=== PATIENT | female | born 1975 | race Caucasian/White ===

== ENCOUNTER 2017-03-03 15:10 | Emergency (ER) | payer MEDICAID, OTHER ==
[~2017-03-03] VITALS: Ht 147.3 cm; Wt 60.0 kg
[~2017-03-03 15:10] MED LIST: MULT1TAB84 PO
[2017-03-03 15:12] VITALS: BP 126/79; PULSE 85; RESP 15; TEMP 98.6; O2SAT 99
[2017-03-03] MEDS ORDERED: CYCLOBENZAPRINE HCL 10 MG TAB PO ONE (19:15)
[2017-03-03] MEDS ORDERED: IBUPROFEN 600 MG TAB PO ONE (19:15)
[2017-03-03] MEDS ORDERED: ACETAMINOPHEN/HYDROcodone 325 MG/5 MG TAB PO ONE (19:15)
[2017-03-03] MEDS ORDERED: DICL75TA PO (19:16)
[2017-03-03] MEDS ORDERED: HYDR-3516 PO (19:16)
[2017-03-03] MEDS ORDERED: CYCL10TA PO (19:16)
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
== END 2017-03-03 19:40 | disposition home or self-care (01) ==
LOC: NEPK 15:10
DX: S16.1XXA Strain of muscle, fascia and tendon at neck level, initial encounter (principal); V89.2XXA Person injured in unspecified motor-vehicle accident, traffic, initial encounter
CPT/HCPCS: 99284

== ENCOUNTER 2017-04-02 03:36 | Emergency (ER) | payer SELFPAY ==
[~2017-04-02 03:36] MED LIST changes: +CYCL10TA PO; +DICL75TA PO; +HYDR-3516 PO
[2017-04-02 03:43] VITALS: BP 111/69; PULSE 118; RESP 22; TEMP 100.2; O2SAT 100
--- NOTE | 2017-04-02 03:57 | PD ---
HPI Chief Complaint: Fever Time Seen by Provider: 03:53 Travel History International Travel<30 days: No Contact w/Intl Traveler<30days: No Traveled to known affect area: No History of Present Illness HPI 41-year-old female presents to the emergency department for complaint of headache fever or neck pain migraine myalgias arthralgias since . Patient states she has been taking ibuprofen. Last ibuprofen was 8 hours prior to arrival to the emergency department. Patient is also had nausea without vomiting. No abdominal pain or diarrhea. Patient presently demonstrating. Patient denies . Patient has no chronic medical problems. Patient takes no medications on a routine basis. Patient states that she did not have the flu vaccine for the season. Patient rates her overall pain 7/10 intensity. PFSH Past Medical History Narrative Medical Kidney stones ureteral stent no tobacco use nursing notes reviewed Anxiety: Yes Diminished Hearing: No Headaches: Yes Kidney Stones: Yes (HX OF STENT) Medical other: Yes (kidney stones ) Immunizations Current: Yes Migraines: Yes Tetanus Vaccination: < 5 Years Influenza Vaccination: No ?: Not LMP: 03/29/17 : 4 Para: 3 Tubal Ligation: Yes Past Surgical History Surgical History: No Previous Surgery Abdominal Surgery: Yes (C-SEC X3) Section: Yes (X 3) Other Surgery: Yes (STENT PLACED-2010) Social History Alcohol Use: No Tobacco Use: No Substance Use: No Allergies-Medications (Allergen,Severity, Reaction): Coded Allergies: ondansetron (Unverified Allergy, Severe, Anaphylaxis, 11/30/16) Reported Meds & Prescriptions Reported Meds & Active Scripts Active Flexeril (Cyclobenzaprine HCl) 10 Mg Tab 10 Mg PO TID Diclofenac Sodium DR (Diclofenac Sodium) 75 Mg Tabdr 75 Mg PO BID Hydrocodone-Acetaminophen 5-325 mg Tab 1 Tab PO Q6H PRN Reported Multivitamin Adults (Multiple Vitamins W/ Minerals) 1 Tab 1 Tab PO DAILY Review of Systems Except as stated in HPI: all other systems reviewed are Neg General / Constitutional: Positive: Fever, Chills HENT: Positive: Headaches, Rhinorrhea, Congestion, Neck Pain, No: Sore Throat Cardiovascular: No: Chest Pain or Discomfort Respiratory: Positive: Cough, No: Shortness of Breath, Wheezing Gastrointestinal: Positive: Nausea, No: Vomiting, Abdominal Pain Genitourinary: No: Flank Pain Musculoskeletal: Positive: Myalgias, Arthralgias Skin: No Rash Neurologic: No: Weakness Psychiatric: No: Anxiety Hematologic/Lymphatic: No: Lymph Node Enlargement Physical Exam Narrative GENERAL: Well-developed well-nourished female in no acute distress no respiratory distress SKIN: Warm and dry. HEAD: Normocephalic. EYES: No scleral icterus. No injection or drainage. ENT mucous membranes moist airway is patent tonsillar edema with erythema and exudative change depending membranes no redness no dullness to loss of landmarks no perforation NECK: Supple, trachea midline. No JVD or lymphadenopathy. No meningismus no nuchal rigidity. CARDIOVASCULAR: Increased Regular rate and rhythm without murmurs, gallops, or rubs. RESPIRATORY: Breath sounds equal bilaterally. No accessory muscle use. GASTROINTESTINAL: Abdomen soft, non-tender, nondistended. MUSCULOSKELETAL: No cyanosis, or edema. BACK: Nontender without obvious deformity. No CVA tenderness. Data Data Last Documented VS Vital Signs Date Time Temp Pulse Resp B/P (MAP) Pulse Ox O2 Delivery O2 Flow Rate FiO2 04/02/17 04:15 98 04/02/17 03:50 Room Air 04/02/17 03:43 100.2 118 22 Orders Orders Complete Blood Count With Diff (04/02/17 03:53) Basic Metabolic Panel (Bmp) (04/02/17 03:53) Group A Rapid Strep Screen (04/02/17 03:53) Influenzae A/B Antigen (04/02/17 03:53) Chest, Pa & Lat (04/02/17 03:53) Iv Access Insert/Monitor (04/02/17 03:53) Oximetry (04/02/17 03:53) Acetaminophen (Tylenol) (04/02/17 04:00) Sodium Chloride 0.9% Flush (Ns Flush) (04/02/17 04:00) Sodium Chlor 0.9% 1000 Ml Inj (Ns 1000 M (04/02/17 04:00) Ed Urine Pregnancytest Poc (04/02/17 03:53) Urinalysis - C+S If Indicated (04/02/17 03:53) Strep Culture (Group A) (04/02/17 04:06) Ketorolac Inj (Toradol Inj) (04/02/17 05:00) Sodium Chlorid 0.9% 500 Ml Inj (Ns 500 M (04/02/17 05:00) Urine Culture (04/02/17 04:06) Ceftriaxone Inj (Rocephin Inj) (04/02/17 05:00) Labs Laboratory Tests Test 04/02/17 04:06 White Blood Count 8.3 TH/MM3 Red Blood Count 3.84 MIL/MM3 Hemoglobin 11.1 GM/DL Hematocrit 33.4 % Mean Corpuscular Volume 87.0 FL Mean Corpuscular Hemoglobin 28.8 PG Mean Corpuscular Hemoglobin Concent 33.1 % Red Cell Distribution Width 12.5 % Platelet Count 282 TH/MM3 Mean Platelet Volume 7.4 FL Neutrophils (%) (Auto) 72.7 % Lymphocytes (%) (Auto) 18.2 % Monocytes (%) (Auto) 8.2 % Eosinophils (%) (Auto) 0.6 % Basophils (%) (Auto) 0.3 % Neutrophils # (Auto) 6.1 TH/MM3 Lymphocytes # (Auto) 1.5 TH/MM3 Monocytes # (Auto) 0.7 TH/MM3 Eosinophils # (Auto) 0.0 TH/MM3 Basophils # (Auto) 0.0 TH/MM3 CBC Comment DIFF FINAL Differential Comment Urine Color YELLOW Urine Turbidity SLIGHT Urine pH 7.5 Urine Specific [place] 1.014 Urine Protein NEG mg/dL Urine Glucose (UA) NEG mg/dL Urine Ketones NEG mg/dL Urine Occult Blood MOD Urine Nitrite NEG Urine Bilirubin NEG Urine Leukocyte Esterase TRACE Urine RBC 4-9 /hpf Urine WBC 3-5 /hpf Urine WBC Clumps RARE Urine Squamous Epithelial Cells 0-5 /hpf Urine Bacteria MOD /hpf Urine Mucus RARE /lpf Microscopic Urinalysis Comment CULTURE INDICATED Blood Urea Nitrogen 9 MG/DL Creatinine 0.81 MG/DL Random Glucose 108 MG/DL Calcium Level 8.7 MG/DL Sodium Level 138 MEQ/L Potassium Level 3.5 MEQ/L Chloride Level 104 MEQ/L Carbon Dioxide Level 24.9 MEQ/L Anion Gap 9 MEQ/L Estimat Glomerular Filtration Rate 79 ML/MIN [facility] Medical Decision Making Medical Screen Exam Complete: Yes Emergency Medical Condition: Yes Medical Record Reviewed: Yes Interpretation(s) CBC & BMP Diagram 04/02/17 04:06 Calcium Level 8.7 Vital Signs Date Time Temp Pulse Resp B/P (MAP) Pulse Ox O2 Delivery O2 Flow Rate FiO2 04/02/17 04:15 98 04/02/17 03:50 Room Air 04/02/17 03:43 100.2 118 22 111/69 (83) 100 UA: Moderate bacteria clumped white blood cells and leukocyte Estrace; culture indicated Chest x-ray: No lobar infiltrate Differential Diagnosis Viral syndrome and influenza pneumonia UTI upper respiratory infection; also to consider sepsis meningitis Narrative Course Patient placed on cardiac surgeon with continuous pulse oximetry IV access obtained specimens collected and sent for resulting patient given 1 L normal saline and 650 mg of acetaminophen Sepsis Criteria SIRS Criteria (2 or more): Heart rate over 90 Sepsis Criteria (SIRS+source): Infect source susp/known (urine) Diagnosis Primary Impression: UTI (urinary tract infection) Additional Impression: Viral syndrome Referrals: Primary Care Physician call for appointment Patient Instructions: General Instructions Additional Instructions: Increase fluid hydration Take acetaminophen/Tylenol every 4 hours for fever 100.4F or greater and ibuprofen/Advil/Motrin 600 mg as often as every 6 hours for fever 100.4F or greater or for pain associated with inflammation Complete course of antibiotic as prescribed Return to the emergency department for any concerns or change in condition Follow-up with your primary care provider Med/Other Pt SpecificInfo: Prescription(s) given Scripts Phenazopyridine (Pyridium) 100 Mg Tab 100 MG PO Q8H Y for DYSURIA, #6 TAB 0 Refills Prov: Lali Mclean MD 04/02/17 Ciprofloxacin (Cipro) 500 Mg Tab 500 MG PO BID for Infection for 7 Days, #14 TAB 0 Refills Prov: Lali Mclean MD 04/02/17 Disposition: 01 DISCHARGE HOME Condition: Stable Lali Mclean MD Apr 02, 2017 03:57
[2017-04-02] MEDS ORDERED: SODIUM CHLORIDE 0.9% FLUSH 10 ML FLUSH IVF PRN (04:00)
[2017-04-02] MEDS ORDERED: SODIUM CHLOR 0.9% 1000 ML INJ 1,000 ML IV ONE (04:00)
[2017-04-02] MEDS ORDERED: ACETAMINOPHEN 325 MG TAB PO ONE (04:00)
[2017-04-02 04:15] VITALS: O2SAT 98
[2017-04-02 04:21] LABS: BILIRUBIN, URINE NEG (NEG); BLOOD, URINE MOD (NEG); GLUCOSE,URINE NEG (NEG); KETONE, URINE NEG (NEG); NITRITE,URINE NEG (NEG); PH, URINE 7.5 (5.0-8.5); URINE LEUKOCYTE ESTERASE TRACE (NEG)
[2017-04-02 04:29] LABS: AUTOMATED NEUTROPHIL # 6.1 TH/MM3 (1.8-7.7); BASOPHIL % 0.3 % (0.0-2.0); EOSINOPHIL % 0.6 % (0.0-4.0); HEMATOCRIT 33.4 % (35.0-46.0); HEMOGLOBIN 11.1 GM/DL (11.6-15.3); LYMPH % 18.2 % (9.0-44.0); LYMPHOCYTE # 1.5 TH/MM3 (1.0-4.8); MEAN CORPUSCULAR HEMOGLOBIN 28.8 PG (27.0-34.0); MEAN CORPUSCULAR HGB CONC 33.1 % (32.0-36.0); MEAN PLATELET VOLUME 7.4 FL (7.0-11.0); MONO % 8.2 % (0.0-8.0); MONOCYTE # 0.7 TH/MM3 (0-0.9); NEUT % 72.7 % (16.0-70.0); PLATELET COUNT 282 TH/MM3 (150-450); RED BLOOD COUNT 3.84 MIL/MM3 (4.00-5.30); RED CELL DISTRIBUTION WIDTH 12.5 % (11.6-17.2); WHITE BLOOD COUNT 8.3 TH/MM3 (4.0-11.0)
--- NOTE | 2017-04-02 04:30 | RADRPT ---
EXAM DATE/TIME: 04/02/2017 04:14 [facility] COMPARISON: CHEST PA & LAT, March 11, 2016, 22:39. INDICATIONS : Fever. MEDICAL HISTORY : None. SURGICAL HISTORY : Tubal ligation. ENCOUNTER: Initial ACUITY: 4 - 6 days PAIN SCORE: 4/10 LOCATION: Bilateral chest FINDINGS: PA and lateral views of the chest demonstrate the lungs to be symmetrically aerated without evidence of mass, infiltrate or effusion. The cardiomediastinal contours are unremarkable. Osseous structure s are intact. CONCLUSION: No evidence of acute cardiopulmonary disease. Malik Beltrán MD on April 02, 2017 at 4:28 Board Certified Radiologist. This report was verified electronically.
[2017-04-02 04:31] LABS: CALCIUM 8.7 MG/DL (8.5-10.1)
[2017-04-02 04:32] LABS: BICARBONATE 24.9 MEQ/L (21.0-32.0)
[2017-04-02 04:36] LABS: CREATININE 0.81 MG/DL (0.50-1.00)
[2017-04-02 04:48] LABS: SQUAMOUS EPITHELIAL CELL URINE 0-5 /hpf (0-5); URINE COLOR YELLOW (YELLW/STRAW)
[2017-04-02 04:49] LABS: BACTERIA, URINE MOD /hpf; MUCUS URINE RARE /lpf (OCC); WHITE BLOOD CELL CLUMPS RARE
[2017-04-02] MEDS ORDERED: SODIUM CHLORID 0.9% 500 ML INJ 500 ML IV ONE (05:00)
[2017-04-02] MEDS ORDERED: cefTRIAXone INJ 1,000 MG in SODIUM CHLORIDE 0.9% INJ 100 ML IV ONE (05:00)
[2017-04-02] MEDS ORDERED: KETOROLAC TROMETHAMINE 30 MG/ML (IVP) VIAL IV PUSH ONE (05:00)
[2017-04-02] MEDS ORDERED: PHEN0.4T PO (05:02)
[2017-04-02] MEDS ORDERED: CIPR-9 PO (05:02)
[2017-04-02 05:55] VITALS: BP 132/75; PULSE 88; RESP 18; TEMP 98.1; O2SAT 98
== END 2017-04-02 06:00 | disposition home or self-care (01) ==
LOC: PHED 03:36
DX: N39.0 Urinary tract infection, site not specified (principal); B96.20 Unspecified Escherichia coli [E. coli] as the cause of diseases classified elsewhere; B34.9 Viral infection, unspecified
CPT/HCPCS: 71020; 80048; 81001; 84703; 85025; 87077; 87081; 87086; 87186; 87804; 87880; 96361; 96365; 96375; 99284; J0696; J1885; J7030; J7040